=== PATIENT | male | born 1990 | race Caucasian/White ===

== ENCOUNTER 2017-10-31 22:59 | Emergency (ER) | payer BC ==
[2017-11-01] MEDS ORDERED: Bacitracin Zinc 1 Packet ONE (00:12)
== END 2017-11-01 00:22 | disposition home or self-care (01) ==
LOC: ERS 22:59
DX: S81.812A Laceration without foreign body, left lower leg, initial encounter (principal); S81.811A Laceration without foreign body, right lower leg, initial encounter; F17.210 Nicotine dependence, cigarettes, uncomplicated; W45.8XXA Other foreign body or object entering through skin, initial encounter
CPT/HCPCS: 12002